=== PATIENT | male | born 1965 | race Native Hawaiian/Other Pacific Islander ===

== ENCOUNTER 2021-10-21 10:11 | Outpatient (CLI) | payer OTHER | END 2021-10-21 19:53 | disposition home or self-care (01) | LOC: RAD 10:11 | PROVIDERS: ATTEND Nurse Practitioner Family | DX: R10.9 Unspecified abdominal pain (principal) ==

== ENCOUNTER 2021-10-29 12:52 | Outpatient (CLI) | payer OTHER | END 2021-10-29 20:04 | disposition home or self-care (01) | LOC: NM 12:52 | PROVIDERS: ATTEND Nurse Practitioner Family | DX: R10.9 Unspecified abdominal pain (principal) | CPT/HCPCS: A9537 ==

== ENCOUNTER 2021-11-18 10:41 | Outpatient (CLI) | payer OTHER | END 2021-11-18 20:00 | disposition home or self-care (01) | LOC: RESP 10:41 | PROVIDERS: ATTEND Nurse Practitioner Family | DX: R07.9 Chest pain, unspecified (principal) ==

== ENCOUNTER 2023-03-06 08:58 | Outpatient (CLI) | payer OTHER | END 2023-03-06 20:46 | disposition home or self-care (01) | LOC: RAD 08:58 | PROVIDERS: ATTEND Nurse Practitioner Family | DX: M79.671 Pain in right foot (principal); M79.672 Pain in left foot; M54.59 Other low back pain ==